=== PATIENT | female | born 1960 | race Caucasian/White ===

== ENCOUNTER 2018-02-11 00:04 | Emergency (ER) | payer BC ==
[2018-02-11 00:13] VITALS: BP 113/59; O2SAT 98
--- NOTE | 2018-02-11 00:28 | ED.PDOC ---
History of Present Illness - General Chief Complaint: ANIMAL THERAPIST Problem Stated Complaint: vaginal/abd pain Time Seen by Provider: 02/11/18 00:08 Source: patient - History of Present Illness Initial Comments: patient comes in today for severe vaginal and abdominal pain and cramping with mild spotting after attempts of sexual intercourse. Patient had vaginal hysterectomy performed on November 12 for endometrial hyperplasia with negative pathology after hysterectomy. Patient states she had already undergone menopause prior to that. Tonight they were going to attempt sexual intercourse but very quickly on she had sudden pain with severe abdominal and pelvic cramping and mild spotting. Patient states she could not get comfortable and the pain was excruciating. By arrival it was starting to improve and by the time of exam it had resolved. Patient stated additionally she tried to urinate directly afterwards that she felt that she had considerable pressure but could not make herself urinate. Patient now feels a lot of pressure in the rectal area and with her intestines but no overt pain. She is overall healthy and only takes medication for thyroid disorder. Patient did use lubrication and her does not have any piercings or anything that could have caused trauma. Timing/Duration: just prior to arrival Quality: severe, cramping Radiation: vaginal Activites at Onset: sexual activity Prior abdominal problems: none Sexual intercourse history: greater than 2 months ago, single partner Improving Factors: rest Worsening Factors: nothing Review of Systems - Review of Systems Constitutional: Denies: chills, fever EENTM: Denies: eye pain, ear pain Respiratory: States: no symptoms reported Cardiology: States: no symptoms reported Gastrointestinal/Abdominal: States: abdominal pain. Denies: diarrhea, nausea, vomiting Genitourinary: States: see HPI Past Medical History (General) - Patient Medical History Hx Thyroid Disease: Yes Hx Diabetes: No Surgical History: Hysterectomy - Vaccination History Hx Tetanus, Diphtheria Vaccination: Yes Hx Influenza Vaccination: Yes Hx Pneumococcal Vaccination: No - Social History Hx Tobacco Use: No Hx Alcohol Use: Yes - wine - Female History Patient is a Female of Child Bearing Age (10 -59 yrs old): Yes Patient : No - Triage Comment ED Triage Comment: hysterctomy done 3months ago Family Medical History - Family History Father Hx Cardiac Disease: Yes Physical Exam - Physical Exam General Appearance: Anxious Eyes, Ears, Nose, Throat Exam: PERRL/EOMI, TMs normal, pharynx normal Neck: non-tender, full range of motion, supple Cardiovascular/Respiratory: regular rate, rhythm, no M/R/G, normal peripheral pulses, no JVD, normal breath sounds, no respiratory distress Gastrointestinal/Abdominal: normal bowel sounds, non tender, soft, no organomegaly, no pulsatile mass Pelvic Exam: external exam normal, other - patient has mild blood in the vaginal vault with raw area on the patient's right posterior mucosa underneath the cuff. No gross disruption can be seen and no active bleeding is seen. Patient is comfortable during the examand has no evidence of bladder or rectal prolapse. Progress - Progress Progress: 02/11/18 01:07 Laboratory Results Urine Color Yellow (Yellow) 02/11/18 Urine Appearance Clear (Clear) 02/11/18 Urine pH 8.5 (4.5-7.8) H 02/11/18 Ur Specific [place] 1.020 (1.005-1.030) 02/11/18: Urine Protein Negative mg/dL 02/11/18 Urine Glucose (UA) Negative mg/dL (Negative) 02/11/18: Urine Ketones Negative mg/dL (NEGATIVE) 02/11/18: Urine Blood Trace-lysed (Negative) H 02/11/18 Urine Nitrite Negative 02/11/18 Urine Bilirubin Negative (NEGATIVE) 02/11/18 Urine Urobilinogen 0.2 mg/dL (0.2-1.0) 02/11/18: Ur Leukocyte Esterase Negative (Negative) 02/11/18: Urine RBC 1-3 /hpf 02/11/18: Urine WBC 1-3 /hpf 02/11/18: Ur Epithelial Cells 0-1 /hpf 02/11/18: Urine Bacteria 1+ 02/11/18:29 02/11/18 01:07 Patient is asymptomatic with no additional pain or bleeding at the time of discharge. Will follow up with [facility] on [place], pelvic rest in the meantime. Return to ER for increased temp >100.5, return of pain, difficulty urinating. Departure - Departure Clinical Impression: Dyspareunia Disposition: Discharge to Home or Self Care Condition: Good Departure Forms: ED Discharge - Pt. Copy, Patient Portal Self Enrollment Diet: resume usual diet Activity: other - pelvic rest Additional Instructions: Patient to follow up with [facility] on [place]. Pelvic Rest until follow up. Return to ER for temp >100.5, return of pain or bleeding.
[2018-02-11 01:36] VITALS: TEMP 97.9
== END 2018-02-11 01:15 | disposition home or self-care (01) ==
LOC: ER 00:04
DX: N94.10 Unspecified dyspareunia (principal); E07.9 Disorder of thyroid, unspecified